=== PATIENT | female | born 1980 | race Caucasian/White ===

== ENCOUNTER 2020-09-10 13:50 | Emergency (ER) | payer OTHER ==
[~2020-09-10 13:50] MED LIST: KEPPRA500 MG PO; LAMICTAL100 MG PO; TORADOL 10 MG T10 MG PO
[2020-09-10 14:59] LABS: HEMOGLOBIN 13.2 gm/dl (12.3-15.3); RED BLOOD COUNT 4.11 M/UL (4.00-5.10); WHITE BLOOD COUNT 13.7 K/UL (4.5-11.0)
[2020-09-10 15:18] LABS: BUN/CREATININE RATIO 11 (0-10)
== END 2020-09-10 17:22 | disposition home or self-care (01) ==
LOC: ER1 13:50
PROVIDERS: Physician Assistant
DX: R10.12 Left upper quadrant pain (principal); R11.2 Nausea with vomiting, unspecified
CPT/HCPCS: 80053; 82150; 83690; 85025; 96374; 96375; 99284; J2405; Q9967